=== PATIENT | male | born 1980 ===

== ENCOUNTER 2021-12-12 11:58 | Emergency (ER) | payer SELFPAY ==
[2021-12-12 12:08] VITALS: BP 138/86
== END 2021-12-13 14:16 | disposition left against medical advice (07) ==
LOC: ED 11:58
DX: S49.92XA Unspecified injury of left shoulder and upper arm, initial encounter (principal); Z53.21 Procedure and treatment not carried out due to patient leaving prior to being seen by health care provider; X58.XXXA Exposure to other specified factors, initial encounter; Y93.89 Activity, other specified; Y92.89 Other specified places as the place of occurrence of the external cause; Y99.8 Other external cause status